=== PATIENT | male | born 1980 | race Two or more races ===

== ENCOUNTER 2017-05-24 11:24 | Emergency (ER) | payer BC, OTHER ==
--- NOTE | 2017-05-24 11:46 | CPEKG ---
Heart Rate: 62 RR Interval: 968 P-R Interval: 172 QRSD Interval: 120 QT Interval: 416 QTC Interval: 423 P [place]: 65 QRS [place]: 59 T Wave [place]: 47 EKG Severity - ABNORMAL ECG - EKG Impression: SINUS RHYTHM EKG Impression: IVCD, CONSIDER ATYPICAL RBBB Electronically Signed By: Iron Lakhani 24-May-2017 14:15:25
[2017-05-24] MEDS ORDERED: NS 1,000 ML IV ONE (12:15)
--- NOTE | 2017-05-24 12:38 | EDPHY ---
H & P Stated Complaint: DIZZYNESS/ROOM SPINNING OFF BALANCE SICE YESTERDAY AROUND 6PM - Personal History Current Tetanus/Diphtheria Vaccine: Yes Tetanus Vaccine Date: 2011 - Medical/Surgical History Hx Asthma: No Hx Chronic Respiratory Disease: No Hx Diabetes: No Hx Cardiac Disease: No Hx Renal Disease: No Hx Cirrhosis: No Hx Alcoholism: No Hx HIV/AIDS: No Hx Splenectomy or Spleen Trauma: No Other PMH: DENIES - Social History Smoking Status: Never smoked Time Seen by Provider: 05/24/17 12:38 Constitutional: Initial Vital Signs Temperature (C) 36.8 C 05/24/17 11:34 Heart Rate 67 05/24/17 11:34 Respiratory Rate 20 05/24/17 11:34 Blood Pressure 124/77 H 05/24/17 11:34 O2 Sat (%) 100 05/24/17 11:34 O2 Delivery Mode Room Air Allergies/Adverse Reactions: No Known Allergies Allergy (Verified 05/24/17 11:33) Home Medications: Medication Instructions Recorded Meclizine HCl [Meclizine HCl 25 mg 25 mg PO QID #0 tab 05/24/17 (RX,OTC)] Medical Decision Making - Diagnostics Imaging Results: Imaging Impressions Brain MRI 05/24/17 12:55 Impression: 1. No acute intracranial findings. 2. Inferior right frontal encephalomalacia, possibly related to sequela of old trauma. 3. Tiny right frontal white matter FLAIR hyperintensity, which could be related to posttraumatic gliosis, chronic microvascular change, migraine sequelae, vasculitis, demyelination, or other etiology. Neck MRA 05/24/17 14:37 Impression: No evidence of flow-limiting stenosis, occlusion, or dissection. Measurement of carotid stenosis is based on the residual internal carotid diameter with [place] Symptomatic Carotid Endarterectomy Trial (NASCET) based stenosis levels. Message left for Que Zhou today, May 24, 2017, at 1627 hours. ED Course/Re-evaluation: CHIEF COMPLAINT: Dizziness, abnormal gait HISTORY OF PRESENT ILLNESS: The patient is a 36 y/o male arriving with his complaining of dizziness onset while working out yesterday. He was at a [employer] gym in a hot room and felt increasingly dizzy at the end of the workout. He cannot identify a specific event that triggered symptoms. After returning home he developed nausea and vomiting and the room-spinning dizziness did not resolve. He felt slightly better lying on his left side through the night. By this morning he continued to feel dizzy and particularly off-balance when walking. He feels like his gait is wider than normal. Moving his head today does not aggravate his symptoms. He denies unilateral weakness, numbness, discoordination, headache, or vision changes. He is normally healthy and has no history of vertigo. REVIEW OF SYSTEMS: A 10 point review of systems was performed and is negative with the exception of the elements mentioned in the history of present illness. PHYSICAL EXAM: HR, BP, O2 Sat, RR. Temp noted General Appearance: Alert, well hydrated, appropriate, and non-toxic appearing. Head: Atraumatic without scalp tenderness or obvious injury Eyes: Pupils equal, round, reactive to light and accommodation, EOMI, no trauma , no injection. Nose: Atraumatic, no rhinorrhea, clear. Throat: There is no erythema or exudates, no lesions, normal tonsils, mucus membranes moist. Neck: Supple, nontender, no lymphadenopathy. Respiratory: No retractions, no distress, no wheezes, and no accessory muscle use. Lungs are clear to auscultation bilaterally. Cardiovascular: Regular rate and rhythm, no murmurs, rubs, or gallops. Bilateral carotid, radial, dorsalis pedis, and posterior tibial pulses intact. Good capillary refill all extremities. Gastrointestinal: Abdomen is soft, nontender, non-distended, no masses, no rebound, no guarding, no peritoneal signs. Musculoskeletal: Normal active ROM of all extremities, atraumatic. Neurological: Alert, appropriate, and interactive. Non-focal cranial nerves, motor, sensory. Cerebellar exam shows an abnormal wide-based gait, normal finger -to-nose. Skin: No rashes, good turgor, no nodules on palpation. Past medical history: Denies Past surgical history: Denies Family history: Noncontributory Social history: Works as a PT. Works out regularly. at bedside. DIAGNOSTICS/PROCEDURES/CRITICAL CARE TIME: The 12 lead EKG was interpreted by myself. Sinus mechanism rate 62 with borderline IVCD. See hard copy and/or "tracemaster" electronic copy for interpretation. DIFFERENTIAL DIAGNOSIS: The differential diagnosis for the patient's neurologic deficits included but was not limited to cerebellar abnormality, peripheral causes, central causes including CVA, TIA, electrolyte abnormalities and dehydration, cardiogenic causes, atypical causes like migraine syndrome. MEDICAL DECISION MAKING: This is a healthy 36 y/o male who presents with a 1-day history of discoordination, dizziness, and abnormal gait that began while practicing [employer]. He has an abnormal cerebellar exam and widened gait on assessment. Plan for IV, labs, EKG, and brain MRI. 1L IV NS and 25mg PO Meclizine administered. 1500: Patient care signed out to Dr. Zhou at shift change pending MRI results. If normal, patient will be discharged with standard positional vertigo care and follow up instructions. (Iron Lakhani) Other Provider: Care assumed from Dr. Lakhani at 1500 with a plan to discharge the patient if MRI and MRA are normal. 1634: MRI and MR angiography per Dr. Lawton shows some intracranial posttraumatic sequelae but otherwise negative. No reason for central vertigo. Results discussed with the patient at this time. (Que Zhou) - Data Points Laboratory Results: Laboratory Results 05/24/17 11:50 05/24/17 11:50 05/24/17 05/24/17 11:50 11:50 WBC 10.03 10^3/uL H 10^3/uL (3.80-9.50) RBC 5.51 10^6/uL 10^6/uL (4.40-6.38) Hgb 15.8 g/dL g/dL (13.7-17.5) Hct 45.3 % % (40.0-51.0) MCV 82.2 fL fL (81.5-99.8) MCH 28.7 pg pg (27.9-34.1) MCHC 34.9 g/dL g/dL (32.4-36.7) RDW 13.2 % % (11.5-15.2) Plt Count 338 10^3/uL 10^3/uL (150-400) MPV 9.5 fL fL (8.7-11.7) Neut % (Auto) 65.9 % % (39.3-74.2) Lymph % (Auto) 27.0 % % (15.0-45.0) [place] % (Auto) 5.9 % % (4.5-13.0) Eos % (Auto) 0.6 % % (0.6-7.6) Baso % (Auto) 0.3 % % (0.3-1.7) Nucleat RBC Rel Count 0.0 % % (0.0-0.2) Absolute Neuts (auto) 6.61 10^3/uL H 10^3/uL (1.70-6.50) Absolute Lymphs (auto) 2.71 10^3/uL 10^3/uL (1.00-3.00) Absolute Monos (auto) 0.59 10^3/uL 10^3/uL (0.30-0.80) Absolute Eos (auto) 0.06 10^3/uL 10^3/uL (0.03-0.40) Absolute Basos (auto) 0.03 10^3/uL 10^3/uL (0.02-0.10) Absolute Nucleated RBC 0.00 10^3/uL 10^3/uL (0-0.01) Immature Gran % 0.3 % % (0.0-1.1) Immature Gran # 0.03 10^3/uL 10^3/uL (0.00-0.10) Sodium 138 mEq/L mEq/L (134-144) Potassium 3.9 mEq/L mEq/L (3.5-5.2) Chloride 101 mEq/L mEq/L (97-110) Carbon Dioxide 23 mEq/l mEq/l (22-31) Anion Gap 14 mEq/L mEq/L (8-16) BUN 16 mg/dL mg/dL (7-23) Creatinine 1.0 mg/dL mg/dL (0.7-1.3) Estimated GFR > 60 Glucose 101 mg/dL H mg/dL (70-100) Calcium 10.3 mg/dL mg/dL (8.5-10.4) Medications Given: Discontinued Medications Sodium Chloride (Ns) 1,000 mls @ 0 mls/hr IV ONCE ONE PRN Reason: Wide Open Stop: 05/24/17 12:16 Last Admin: 05/24/17 12:17 Dose: 1,000 mls Meclizine HCl (Meclizine Hcl) 25 mg PO EDNOW ONE Stop: 05/24/17 14:23 Last Admin: 05/24/17 16:06 Dose: 25 mg Departure - Departure Disposition: Home, Routine, Self-Care Clinical Impression: Benign paroxysmal positional vertigo Qualifiers: Laterality: unspecified laterality Qualified Code(s): H81.10 - Benign paroxysmal vertigo, unspecified ear Condition: Good Instructions: Meclizine (By mouth), Vertigo (ED) Additional Instructions: 1. Take Meclizine as prescribed as needed for vertigo symptoms. 2. Follow up with ENT for unimproved symptoms over the next 2-3 days. 3. Return to the ED for severe headache, weakness or numbness on one side of your body, difficulty with speech, fever, or other worsening of condition. Referrals: Hernesto Antunez MD [Medical Doctor] - As per Instructions Prescriptions: Meclizine HCl [Meclizine HCl 25 mg (RX,OTC)] 25 mg PO QID #0 tab Report Scribed for: Iron Lakhani Report Scribed by: Nasima Jean-Baptiste Date of Report: 05/24/17 Time of Report: 14:25
[2017-05-24 13:00] LABS: % IMMATURE GRANULYOCYTES 0.3 % (0.0-1.1); ABSOLUTE IMMATURE GRANULOCYTES 0.03 10^3/uL (0.00-0.10); ADD DIFF? NO; ADD MORPH? NO; ADD SCAN? NO; ATYPICAL LYMPHOCYTE FLAG 0 (0-99); FRAGMENT RBC FLAG 0 (0-99); HEMATOCRIT 45.3 % (40.0-51.0); HEMOGLOBIN 15.8 g/dL (13.7-17.5); LEFT SHIFT FLG 0 (0-99); LIPEMIA HEMOLYSIS FLAG 90 (0-99); MEAN CELL HEMOGLOBIN 28.7 pg (27.9-34.1); MEAN CELL HEMOGLOBIN CONCENTR. 34.9 g/dL (32.4-36.7); MEAN CELL VOLUME 82.2 fL (81.5-99.8); MEAN PLATELET VOLUME 9.5 fL (8.7-11.7); PLATELET CLUMPS FLAG 20 (0-99); PLATELET COUNT 338 10^3/uL (150-400); RED BLOOD CELL COUNT 5.51 10^6/uL (4.40-6.38); RED CELL DISTRIBUTION WIDTH 13.2 % (11.5-15.2)
[2017-05-24 13:05] LABS: ANION GAP 14 mEq/L (8-16); CALCIUM 10.3 mg/dL (8.5-10.4); CARBON DIOXIDE 23 mEq/l (22-31); CHLORIDE 101 mEq/L (97-110); GLOMERULAR FILTRATION RATE > 60; GLUCOSE 101 mg/dL (70-100); POTASSIUM 3.9 mEq/L (3.5-5.2); SODIUM 138 mEq/L (134-144)
[2017-05-24] MEDS ORDERED: MECLIZINE HCL 25 MG TAB PO ONE (14:22)
[2017-05-24] MEDS ORDERED: GADOBUTROL 10 ML VIAL IVP ONE (14:40)
[2017-05-24 16:53] VITALS: BP 127/81; PULSE 58; RESP 16; TEMP 98.1; O2SAT 98
== END 2017-05-24 16:50 | disposition home or self-care (01) ==
DX: H81.10 Benign paroxysmal vertigo, unspecified ear (principal)
CPT/HCPCS: A9585